=== PATIENT | female | born 1980 | race Caucasian/White ===

== ENCOUNTER → 2017-11-18 | Outpatient (CLI) | payer BC ==
[~2017-11-18] MED LIST: CODE-54 PO; FRS325T PO; ONDAN4ODT PO; PREN1TAB39 PO
--- NOTE | 2017-11-18 17:28 | Diagnostic Imaging Report ---
US NON OB PELVIS COMP/TRANSVAG. TECHNIQUE: Transabdominal and transvaginal grayscale, color Doppler and pulse duplex imaging of the pelvis was performed. INDICATION: Abnormal uterine bleeding in a premenopausal 37-year-old female. FINDINGS: The uterus measures 8.8 x 4.5 x 4.3 cm. The myometrium is normal in echogenicity without discrete mass. The endometrium measures up to 0.6 cm where visualized, and is normal in echogenicity. The right ovary measures 4.2 x 2.9 x 3.1 cm. The left ovary measures 2.6 x 1.9 x 1.9 cm. Both ovaries are physiologic in appearance. There is a dominant follicle within the left ovary measuring 2.9 x 2.0 x 2.2 cm which is anechoic. Blood flow is seen in both ovaries on color Doppler imaging. No suspicious adnexal mass or fluid collection. No free pelvic fluid. Impression: 1. Physiologic appearance of the endometrium that is normal in thickness measuring 0.6 cm. 2. Normal dominant follicle in the left ovary measures up to 2.9 cm. Dictated by: Dictated on workstation # [id number]
== END ==
LOC: RAD 13:31
PROVIDERS: ATTEND Family Medicine
DX: N93.9 Abnormal uterine and vaginal bleeding, unspecified (principal)
CPT/HCPCS: 76830; 76856

== ENCOUNTER → 2018-03-16 | Outpatient (CLI) | payer BC ==
--- NOTE | 2018-03-16 09:13 | Diagnostic Imaging Report ---
INDICATION: Routine screening. COMPARISON: No prior mammograms are available for comparison. This is a baseline study. TECHNIQUE: 2D and 3D bilateral screening mammography was performed with CAD. FINDINGS: Scattered fibroglandular densities are identified bilaterally. No mass or malignant appearing microcalcifications are seen. The axillae are unremarkable. IMPRESSION: No mammographic features suspicious for malignancy are identified. ACR BI-RADS Category 1: Negative. Result letter will be mailed to the patient. Note: At least 10% of breast cancer is not imaged by mammography. Dictated by: Dictated on workstation # [id number]
== END ==
LOC: RAD 07:11
PROVIDERS: ATTEND Family Medicine
DX: Z12.31 Encounter for screening mammogram for malignant neoplasm of breast (principal)
CPT/HCPCS: 77067

== ENCOUNTER 2018-07-28 15:55 | Outpatient (CLI) | payer BC ==
[~2018-07-28] VITALS: Ht 160 cm; Wt 59.4 kg
[2018-07-28] MEDS ORDERED: DIAZ5TAB3 PO (16:03)
[2018-07-28] MEDS ORDERED: SUCR1TAB PO (16:03)
[2018-07-28] MEDS ORDERED: SERT25TA5 PO (16:03)
[2018-07-28] MEDS ORDERED: PANT40TA3 PO (16:03)
== END 2018-07-28 16:04 | disposition home or self-care (01) ==
LOC: PREOP 15:55
PROVIDERS: ATTEND Internal Medicine
DX: Z01.818 Encounter for other preprocedural examination (principal)

== ENCOUNTER 2018-07-31 09:35 | Day surgery (SDC) | payer BC ==
[~2018-07-31] VITALS: Ht 160 cm; Wt 59.4 kg
[~2018-07-31 09:35] MED LIST changes: +DIAZ5TAB3 PO; +PANT40TA3 PO; +SERT25TA5 PO; +SUCR1TAB PO
[2018-07-31] MEDS ORDERED: D5 LR IV SOLUTION 1,000 ML IV STA (09:52)
[2018-07-31] MEDS ORDERED: HURRICAINE EXT TUBE (BENZOCAINE) XX PRN (10:00)
[2018-07-31] MEDS ORDERED: fentaNYL INJECTION 100 MCG/2 ML AMP IVP ONE (10:00)
[2018-07-31] MEDS ORDERED: MIDAZOLAM 2 MG/2 ML (VERSED) VIAL IVP ONE (10:00)
[2018-07-31] MEDS ORDERED: D5 LR IV SOLUTION 1,000 ML IV ONE (10:03)
--- NOTE | 2018-07-31 10:16 | Pre-Op Note & Conscious Sedat ---
Pre-Operative Progress Note H&P Reviewed The H&P was reviewed, patient examined and no changes noted. Date H&P Reviewed: Jul 31, 2018 Time H&P Reviewed: 10:16 Conscious Sedation Pre-Proced ASA Score 2 For ASA 3 and 4: Consider anesthesia and medical clearance. Also, for patients with a history of failed moderate sedation consider anesthesia. Airway Lungs Heart ASA score ASA 1: a normal healthy patient ASA 2: a patient with a mild systemic disease (mid diabetes, controlled hypertension, obesity ASA 3: a patient with a severe systemic disease that limits activity (angina , COPD, prior Myocardial infarction) ASA 4: a patient with an incapacitating disease that is a constant threat to life (CHF, renal failure) ASA 5: a moribund patient not expected to survive 24 hrs. (ruptured aneurysm) ASA 6: a declared brain patient whose organs are being harvested. For emergent operations, add the letter E after the classification Mallampati Classification Grade 2 Sedation Plan Analgesia, Amnesia, Plan communicated to team members, Discussed options with patient/fam, Discussed risks with patient/fam The patient is an appropriate candidate to undergo the planned procedure, sedation, and anesthesia. The patient immediately re-assessed prior to indication. ADARSH YOUNG MD Jul 31, 2018 10:16
[2018-07-31 10:33] VITALS: BP 132/76
[2018-07-31] MEDS ORDERED: MIDAZOLAM 2 MG/2 ML (VERSED) VIAL ONE ×3 (10:44→11:25)
[2018-07-31] MEDS ORDERED: LIDOCAINE JELLY 2% 6 ML SYRINGE ONE (10:44)
[2018-07-31] MEDS ORDERED: HURRICAINE EXT TUBE (BENZOCAINE) ONE (10:44)
[2018-07-31] MEDS ORDERED: fentaNYL INJECTION 100 MCG/2 ML AMP ONE (10:44)
[2018-07-31 11:50] VITALS: BP 107/66
[2018-07-31 12:20] VITALS: BP 103/70
[2018-07-31] MEDS ORDERED: MAGN1TAB31 PO (12:41)
[2018-07-31 12:48] VITALS: BP 103/70
--- NOTE | 2018-07-31 21:12 | OPERATIVE REPORT ---
DATE OF SERVICE: EGD SUMMARY The patient is scheduled for EGD for evaluation of symptoms compatible with reflux refractory to daily proton pump inhibitor therapy. The patient was placed in the left lateral decubitus position. The endoscope was inserted in the oral cavity and under direct visualization, the esophagus was intubated. The endoscope was passed down the esophagus, stomach and second portion of the duodenum. Careful inspection was made as the endoscope was withdrawn. The patient tolerated the procedure well. FINDINGS: The posterior hypopharynx, arytenoid aperture, true and false vocal folds were unremarkable. No evidence for erythema or edema was noted. Proximal, mid and distal esophagus were normal save for the fact that the patient's lower esophageal sphincter remain patent, well visualized during today's procedure suggesting sphincter laxity. There was no evidence for hiatal hernia formation and no evidence for erosive esophagitis. The Z line was distinct. No rings, webs, strictures or evidence for Costello's change were noted. A biopsy was obtained from the Z line. The cardia, fundus and antrum of the stomach were unremarkable in appearance. Did obtain a biopsy from the antrum and submitted for histopathology and Helicobacter. The pylorus, the pyloric channel, the duodenal bulb and second portion of duodenum were unremarkable with normal villous appearing architecture. ASSESSMENT AND PLAN: Today's findings suggest underlying lower esophageal sphincter laxity as noted above without evidence for erosive esophagitis. No other significant abnormalities were noted. The patient believes that she is doing better on Carafate, which was started 1 week ago. Proton pump inhibitor therapy in the form of pantoprazole was stopped at that time. Considering this, and side effect profile advised she continue carafate . As she is still having some breakthrough symptoms. I recommended that she pickler helper Gaviscon extra strength 2 tablets up to every 2 to 3 hours as needed for breakthrough symptoms. We discussed the importance of non-medication reflux management, smaller meals more frequently, minimal to no p.o. intake except for medication 3 to 4 hours before lying down. Discussed elevating the head of the bed 4 to 6 inches at night as well. If these maneuvers are not adequate for reasonable symptom relief, considering that in talking with her, she was just having nighttime and early a.m. reflux on pantoprazole, she could be switched to b.i.d. pantoprazole with p.r.n. antacid therapy. Lastly, if she is just predominantly having nighttime symptoms despite Carafate and Gaviscon, would consider metoclopramide 10 mg at bedtime with consideration for daytime use if needed. For now, the patient was satisfied with continuing Carafate and trying p.r.n. Gaviscon. I thank you for the referral of this pleasant lady. Job ID: [id number] DocumentID: [id number] Dictated Date: 07/31/2018 13:18:14 Computer Operations Technician Date: 07/31/2018 21:11:18 Dictated By: ADARSH YOUNG MD [facility] [place] [facility]
== END 2018-07-31 12:48 | disposition home or self-care (01) ==
LOC: ENDO 09:35
PROVIDERS: ATTEND Internal Medicine
DX: K21.9 Gastro-esophageal reflux disease without esophagitis (principal); Z79.899 Other long term (current) drug therapy
CPT/HCPCS: 84703

== ENCOUNTER → 2019-03-17 | Outpatient (CLI) | payer BC ==
[~2019-03-17] MED LIST changes: +MAGN1TAB31 PO
--- NOTE | 2019-03-18 08:48 | Diagnostic Imaging Report ---
Indication: Routine screening. Comparison is made with prior mammogram from 03/16/2018. 2-D and 3-D bilateral screening mammography was performed with CAD. Scattered fibroglandular densities are identified bilaterally. The parenchymal pattern is stable. No mass or malignant appearing microcalcifications are seen. Axillae are unremarkable. Impression: BI-RADS category one No mammographic features suspicious for malignancy are identified. ACR BI-RADS Category 1: Negative. Result letter will be mailed to the patient. Note: At least 10% of breast cancer is not imaged by mammography. Dictated by: Dictated on workstation # [id number]
== END ==
LOC: RAD 15:13
PROVIDERS: ATTEND Nurse Practitioner Family
DX: Z12.31 Encounter for screening mammogram for malignant neoplasm of breast (principal)
CPT/HCPCS: 77067

== ENCOUNTER → 2019-06-16 | Outpatient (CLI) | payer BC ==
[~2019-06-16] MED LIST changes: -DIAZ5TAB3 PO; +DIAZ5TAB49 PO
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
--- NOTE | 2019-06-16 13:32 | Diagnostic Imaging Report ---
INDICATION: Chronic neck and back pain. TECHNIQUE: Multiplanar, multisequence imaging of the thoracic spine was performed without contrast. COMPARISON: No prior studies are available for comparison. FINDINGS: Curvature and alignment of the thoracic spine are normal. Vertebral body heights are maintained. The marrow signal intensity is normal. No geographic marrow lesion or fracture is seen. There is fairly normal height and signal intensity to the thoracic intervertebral discs. No focal or diffuse disc bulge is identified. There is no central canal or neural foraminal stenosis identified. The paraspinous tissues are unremarkable. IMPRESSION: Unremarkable MRI of the thoracic spine. Dictated by: Dictated on workstation # [id number]
== END ==
LOC: RAD 12:01
PROVIDERS: ATTEND Nurse Practitioner Family
DX: M50.222 Other cervical disc displacement at C5-C6 level (principal); M48.02 Spinal stenosis, cervical region; M54.5 Low back pain
CPT/HCPCS: 72141; 72146

== ENCOUNTER → 2022-06-21 | Outpatient (CLI) | payer BC ==
[~2022-06-21] MED LIST changes: -PANT40TA3 PO; +PANT40TA52 PO; +SERT-412 PO; -SERT25TA5 PO
--- NOTE | 2022-06-21 16:37 | Diagnostic Imaging Report ---
INDICATION: Routine screening. COMPARISON: Prior mammograms from 03/17/2019 and 03/16/2018. EXAMINATION: 2D and 3D bilateral screening mammography was performed with CAD. The current study was also evaluated with a Computer Aided Detection (CAD) system. FINDINGS: Scattered fibroglandular densities are identified bilaterally. The parenchymal pattern is stable. No mass or malignant-appearing microcalcifications are seen. Axillae are unremarkable. IMPRESSION: No mammographic features suspicious for malignancy are identified. ACR BI-RADS Category 1: Negative. Result letter will be mailed to the patient. Note: At least 10% of breast cancer is not imaged by mammography. Dictated on workstation # [id number]
== END ==
LOC: RAD 15:29
PROVIDERS: ATTEND Family Medicine
DX: Z12.31 Encounter for screening mammogram for malignant neoplasm of breast (principal)
CPT/HCPCS: 77063; 77067

== ENCOUNTER → 2023-07-09 | Outpatient (CLI) | payer BC ==
--- NOTE | 2023-07-09 13:04 | Diagnostic Imaging Report ---
INDICATION: Routine screening. Comparison is made with prior mammogram from 06/21/2022 and 03/17/2019. 2-D and 3-D bilateral screening mammography was performed with CAD Scattered fibroglandular densities are identified bilaterally. There is a focal density in the medial left breast at anterior depth best seen on the CC view. No definite correlate is identified on the MLO view. Additional views of this area is recommended. The right breast is unremarkable. No malignant-appearing microcalcifications are identified. Axillae are unremarkable. IMPRESSION: Left breast density. Additional views are recommended for further evaluation. ACR BI-RADS Category 0: Incomplete. (Needs additional imaging evaluation). Result letter will be mailed to the patient. Note: At least 10% of breast cancer is not imaged by mammography. BI-RADS 0 Dictated by: Dictated on workstation # [id number]
== END ==
LOC: RAD 11:30
PROVIDERS: ATTEND Family Medicine
DX: Z12.31 Encounter for screening mammogram for malignant neoplasm of breast (principal)
CPT/HCPCS: 77063; 77067

== ENCOUNTER → 2023-07-23 | Outpatient (CLI) | payer BC ==
--- NOTE | 2023-07-23 10:58 | Diagnostic Imaging Report ---
Ultrasound of the left breast. Indication: Abnormal mammogram The screening mammogram performed on 07/09/2023 noted a small 2-3 mm focal density in the medial aspect of the breast at anterior depth. That finding was only seen on the craniocaudad view. On the diagnostic mammogram performed prior to the study the abnormally could not be identified with certainty. On this study there is still no discrete solid or cystic mass evident in the medial aspect of the breast to correspond to the finding of the screening mammogram. I suspect that this finding on the screening mammogram may be secondary to fibroglandular tissue or to a benign process. Even so, it may prove worthwhile to short-term (6 month) followup mammogram of the left breast for continued evaluation. During the course of the exam a 1.2 cm benign-appearing lymph node was identified in the left axilla. IMPRESSION: There is no evidence of malignancy. Recommendations as above. ACR BI-RADS Category 3: Probably benign findings. Result letter will be mailed to the patient. Note: At least 10% of breast cancer is not imaged by mammography. Dictated by: Dictated on workstation # [id number]
--- NOTE | 2023-07-23 11:57 | Diagnostic Imaging Report ---
3-D unilateral diagnostic left mammogram with CAD. Indication: Abnormal screening mammogram The recent screening mammogram performed on 07/09/2023 noted a focal 2 to 3 mm density in the medial aspect of the left breast at anterior depth. This finding was only seen on the craniocaudad view. The area in question does not seem as conspicuous on the compression roll views of this exam. Furthermore this density cannot be identified in the true lateral view either. This focal density may merely be secondary to fibroglandular tissue or perhaps to a benign process. I would recommend that ultrasound be performed for further study however. IMPRESSION: There is no evidence for malignancy. Ultrasound would be recommended for further study. ACR BI-RADS Category 0: Incomplete. (Needs additional imaging evaluation). Result letter will be mailed to the patient. Note: At least 10% of breast cancer is not imaged by mammography. Dictated by: Dictated on workstation # [id number]
== END ==
LOC: RAD 08:45
PROVIDERS: ATTEND Nurse Practitioner Family
DX: R92.8 Other abnormal and inconclusive findings on diagnostic imaging of breast (principal)
CPT/HCPCS: 76641; 77065; G0279